=== PATIENT | female | born 1970 | race African-American/Black ===

== ENCOUNTER 2019-11-08 07:52 | Emergency (ER) | payer BC ==
[~2019-11-08] VITALS: Ht 177.8 cm; Wt 100.0 kg
[2019-11-08] MEDS ORDERED: SODIUM CHLORIDE 0.9% 1,000 ML IV ONE (08:15)
[2019-11-08 08:39] LABS: BASOPHILS % 0.6 % (0.0-2.0); EOSINOPHILS % 1.7 % (0.0-5.0); HEMATOCRIT. 33.9 % (36.0-48.0); HEMOGLOBIN. 11.1 g/dL (12.0-16.0); MEAN CORPUSCULAR HEMOGLOBIN 22.8 pg (28.0-32.0); MEAN CORPUSCULAR VOLUME 69.3 fL (81.0-99.0); MEAN PLATELET VOLUME 9.7 fl (7.4-10.4); MONOCYTES % 11.7 % (2.0-8.0); PLATELET 215 x1000/uL (130-400); RED BLOOD CELL COUNT 4.88 mill/uL (4.2-5.4); RED CELL DISTRIBUTION WIDTH 17.6 % (11.6-14.6)
[2019-11-08 08:42] LABS: CHLORIDE 108 mEq/L (98-107)
[2019-11-08] MEDS ORDERED: ACETAMINOPHEN 325MG TABLET PO ONE (08:45)
[2019-11-08 09:26] LABS: PLATELET ESTIMATE NORMAL
[2019-11-08] MEDS ORDERED: KETOROLAC 15MG/ML VIAL IV ONE (09:45)
[2019-11-08 10:20] VITALS: BP 140/86
== END 2019-11-08 10:49 | disposition home or self-care (01) ==
LOC: ER 07:52
DX: R55 Syncope and collapse (principal); R20.2 Paresthesia of skin; D64.9 Anemia, unspecified
CPT/HCPCS: 36415; 70450; 71045; 72125; 80053; 83880; 84484; 85025; 93005; 96361; 96374; 99285; J1885; J7030